=== PATIENT | male | born 1960 | race Caucasian/White ===

== ENCOUNTER 2021-03-02 09:49 | Outpatient (CLI) | payer OTHER, SELFPAY ==
--- NOTE | ~2021-03-02 | CT_ITS ---
EXAMINATION: CT lung screening DATE: 03/02/2021 11:30 INDICATION: History of tobacco dependence. Emphysema. TECHNIQUE: Computed tomography (CT) of the chest was performed without intravenous contrast. The dose -length product was 73.25 mGy-cm. Automated exposure control and iterative reconstruction technique w ere employed. COMPARISON: None FINDINGS: No thoracic lymph node enlargement. There is atherosclerosis of the aorta and coronary weston andrew. No significant pleural or pericardial effusion. Severe emphysema. No endobronchial lesions. The re is lingular atelectasis/scarring. No suspicious pulmonary nodules or masses. There is mild thoraci c spondylosis. No acute osseous abnormality. IMPRESSION: 1. Lung-RADS category 1: Negative. Continue annual screening with noncontrast low-dose chest CT in 12 months. Reviewed, dictated and finalized at location B. IMPRESSION: 1. Lung-RADS category 1: Negative. Continue annual screening with noncontrast l ow-dose chest CT in 12 months.
== END 2021-03-02 09:50 | disposition home or self-care (01) ==
PROVIDERS: PCP Family Medicine
DX: Z12.2 Encounter for screening for malignant neoplasm of respiratory organs (principal); Z87.891 Personal history of nicotine dependence
CPT/HCPCS: 71271

== ENCOUNTER 2021-03-02 09:56 | Outpatient (CLI) | payer OTHER, SELFPAY ==
--- NOTE | 2021-03-03 15:25 | WPDPFTINT ---
PFT Procedure Performed PFT Procedure Performed Spirometry with Pre/Post Bronchodilator Plethysmography (Lung Vol) Diffusing Cap (DLCO) Flow Vol Loop PFT Interpretation DOS: 03/02/2021 REQUESTING: JASON Romero REASON FOR TESTING: COPD PULMONARY FUNCTION TESTS Test results are reliable and reproducible. Spirometry: FEV1 is 35% predicted, 1.24 L severely decreased. FVC is 76% predicted. The FEV1/FVC ratio is decreased 46%. There is a 31% increase in the FVC which is also greater than 200 mL, significant. Lung volumes: Total lung capacity is 119%, upper limit of normal. Slow vital capacity is 81%, slightly higher than the forced vital capacity. Residual volume is 184% consistent with severe air trapping. Airway resistance is increased, 642%. Diffusion: DLCO is 46%, moderately decreased. No change when corrected for alveolar volume. Flow volume loop: Flow volume loop shows severe scooping of the expiratory limb consistent with an obstructive process. IMPRESSION: This study shows extremely severe obstructive ventilatory impairment, severe air trapping, and moderate diffusion impairment. There is an excellent response to bronchodilator. This pattern is consistent with chronic obstructive pulmonary disease. There is no prior study for comparison. Marguerite Bishop MD
== END 2021-03-02 09:57 | disposition home or self-care (01) ==
LOC: CHSCARD 09:57
PROVIDERS: PCP Family Medicine
DX: J44.9 Chronic obstructive pulmonary disease, unspecified (principal)
CPT/HCPCS: 94060; 94726; 94729

== ENCOUNTER 2021-04-02 14:57 | Outpatient (CLI) | payer OTHER, SELFPAY ==
--- NOTE | ~2021-04-02 | XR_ITS ---
EXAMINATION: XR foot RT min 3V DATE: 04/02/2021 15:41 INDICATION: Right foot pain TECHNIQUE: Dorsoplantar, lateral, and 2 oblique views of the right foot were obtained. COMPARISON: None. FINDINGS: There is no fracture, dislocation, or subluxation. The bones, soft tissues, and joint space s are normal. There is persistent flexion of the second toe. IMPRESSION: 1. No acute osseous abnormality. Reviewed, dictated and finalized at location B.
--- NOTE | ~2021-04-02 | XR_ITS ---
XR shoulder RT min 2V 04/02/2021 15:38 INDICATION: Right shoulder pain PROCEDURE: 5 views right shoulder COMPARISON: No prior studies for comparison. FINDINGS: Fracture, dislocation or subluxation is not identified. The soft tissues appear within norm al limits. No foreign bodies are identified. IMPRESSION: 1: NO ACUTE BONE OR JOINT ABNORMALITY IDENTIFIED. Reviewed, dictated and finalized at location A.
== END 2021-04-02 14:58 | disposition home or self-care (01) ==
LOC: CHSIMG 15:00
PROVIDERS: PCP Family Medicine; Visit Provider Family Medicine
DX: M25.511 Pain in right shoulder (principal); M79.671 Pain in right foot
CPT/HCPCS: 73030; 73630

== ENCOUNTER 2022-02-16 10:31 | Outpatient (CLI) | payer OTHER, SELFPAY ==
--- NOTE | ~2022-02-16 | CT_ITS ---
EXAMINATION: CT lung screening DATE: 02/16/2022 10:51 INDICATION: Personal history of nicotine dependence, current smoker TECHNIQUE: Computed tomography (CT) of the chest was performed without intravenous contrast. The dose -length product (DLP) was 73.32 mGy-cm. Automated exposure control and iterative reconstruction techn ique were employed. COMPARISON: 03/02/2021 FINDINGS: There is severe emphysema. There is a stable 6 mm subpleural nodule of the left lower lobe. There is unchanged mild atelectasis of the lingula. The lungs are free of acute opacities. There is no pleural effusion or pneumothorax. No pathologically enlarged thoracic lymph nodes are identified. The heart size is normal. There is moderate thoracic spondylosis. IMPRESSION: 1. Lung-RADS category 2: Benign appearance or behavior. Continue annual screening with noncontrast lo w-dose chest CT in 12 months. Reviewed, dictated and finalized at location A. IMPRESSION: 1. Lung-RADS category 2: Benign appearance or behavior. Continue annual screeni ng with noncontrast low-dose chest CT in 12 months.
== END 2022-02-16 10:32 | disposition home or self-care (01) ==
PROVIDERS: PCP Family Medicine; Visit Provider Family Medicine
DX: Z87.891 Personal history of nicotine dependence (principal)
CPT/HCPCS: 71271

== ENCOUNTER 2023-02-15 09:44 | Outpatient (CLI) | payer OTHER, SELFPAY ==
--- NOTE | ~2023-02-15 | CT_ITS ---
EXAMINATION: CT lung screening DATE: 02/15/2023 10:02 INDICATION: History of tobacco dependence. Cough. Screening for lung cancer. TECHNIQUE: Computed tomography (CT) of the chest was performed without intravenous contrast. The dose -length product was 88.70 mGy-cm. Automated exposure control and iterative reconstruction technique w ere employed. COMPARISON: CT dated 02/16/2022 FINDINGS: No thoracic lymphadenopathy. No significant pleural or pericardial effusion. Heart size nor mal. Mild atherosclerosis. Gallstones. Severe emphysema. No endobronchial lesions. Stable 6 mm subple ural nodule in the left lower lobe, image 91. No pneumothorax. There is chronic lingular atelectasis/ scarring. Mild thoracic spondylosis. IMPRESSION: 1. Lung-RADS category 2: Benign appearance or behavior. Continue annual screening with noncontrast lo w-dose chest CT in 12 months. Reviewed, dictated and finalized at location B. IMPRESSION: 1. Lung-RADS category 2: Benign appearance or behavior. Continue annual screeni ng with noncontrast low-dose chest CT in 12 months.
== END 2023-02-15 09:45 | disposition home or self-care (01) ==
LOC: CHSIMG 09:46
PROVIDERS: PCP Family Medicine; Visit Provider Family Medicine
DX: Z12.2 Encounter for screening for malignant neoplasm of respiratory organs (principal); Z87.891 Personal history of nicotine dependence
CPT/HCPCS: 71271

== ENCOUNTER 2024-04-17 10:26 | Outpatient (CLI) | payer OTHER, SELFPAY ==
--- NOTE | ~2024-04-17 | XR_ITS ---
Left elbow Technique: AP, oblique, and lateral views were obtained. Clinical History: Pain Findings: No acute fracture or dislocation is seen. Osseous alignment is anatomic. Joint spaces are p reserved. There is no displacement of the fat pads, and soft tissues are unremarkable. Impression: Unremarkable radiographs. Reviewed, dictated and finalized at location . Impression: Unremarkable radiographs.
--- NOTE | ~2024-04-17 | CT_ITS ---
CT Scan of the Chest without Contrast: Clinical Indication: Lung cancer screening, nicotine dependence Technique: Contiguous sections were acquired throughout the chest without intravenous contrast. Dose reduction technique was used on this scan by utilizing automated exposure control and iterative recon struction technique. The dose-length product (DLP) was 71.34 mGy-cm. COMPARISON: 02/15/2023 Findings: There is no evidence of any significant mediastinal, hilar or axillary lymphadenopathy. The mediastin al soft tissues appear normal. There is no evidence of pleural or pericardial effusion. Severe emphysema present. There is chronic scarring or atelectasis in the lingula. Stable rounded ple ural-based nodule at the left lower lobe posteriorly (axial image 102). Images through the upper abdomen reveal no abnormalities. Impression: Lung RADS 2: Benign appearance. 12 month follow-up screening CT advised. Stable severe emphysema. Reviewed, dictated and finalized at [facility]. Impression: Lung RADS 2: Benign appearance. 12 month follow-up screening CT advised. Stable severe emphysema.
== END 2024-04-17 10:27 | disposition home or self-care (01) ==
PROVIDERS: PCP Family Medicine; Visit Provider Family Medicine
DX: Z12.2 Encounter for screening for malignant neoplasm of respiratory organs (principal); Z87.891 Personal history of nicotine dependence; M25.522 Pain in left elbow; J43.9 Emphysema, unspecified
CPT/HCPCS: 71271; 73080

== ENCOUNTER 2024-05-06 07:09 | Outpatient (CLI) | payer OTHER, SELFPAY ==
--- NOTE | ~2024-05-06 | US_ITS ---
EXAMINATION: US renal BI DATE: 05/06/2024 07:45 INDICATION: Chronic kidney disease TECHNIQUE: Multiple ultrasound grayscale images of the kidneys were obtained. COMPARISON: None. FINDINGS: The right kidney measures 9.3 x 4.1 x 4.0 cm. The left kidney measures 11.3 x 5.1 x 4.4 cm. The kidne ys demonstrate normal echogenicity. There is no hydronephrosis in either kidney. No stones identifie d. The bladder is normal attending for partially decompressed state. Calculated prevoid bladder volum e of 35 mL and postvoid bladder volume of 5 mm . Prostatomegaly measuring 5.1 x 4.1 x 3.7 cm IMPRESSION: 1. Normal kidneys without hydronephrosis. Reviewed, dictated and finalized at location B.
== END 2024-05-06 07:10 | disposition home or self-care (01) ==
LOC: CHSIMG 07:11
PROVIDERS: PCP Family Medicine; Visit Provider Family Medicine
DX: N18.9 Chronic kidney disease, unspecified (principal)
CPT/HCPCS: 76775

== ENCOUNTER 2025-07-02 07:35 | Outpatient (CLI) | payer MEDICARE, MEDICAID, SELFPAY ==
--- NOTE | ~2025-07-02 | CT_ITS ---
EXAMINATION: CT lung screening DATE: 07/02/2025 07:52 INDICATION: Personal history of nicotine dependence TECHNIQUE: Computed tomography (CT) of the chest was performed without intravenous contrast. The dose-length product was 88.65 mGy-cm. COMPARISON: Chest CT 04/17/2024 and 02/16/2022 FINDINGS: No enlarged mediastinal or hilar lymph nodes. Heart is unenlarged. There are coronary artery calcifications. Cholelithiasis. Thoracic aorta is not aneurysmal but is mildly calcified. Severe stable centrilobular and paraseptal emphysema. No pleural effusion. No pulmonary mass. Stable 3 mm pulmonary nodule along the minor fissure in the right lung. There are a few small reticular and subpleural opacities in the lower lungs likely scarring and atelectasis similar to prior studies.. Bones appear osteopenic. Multilevel degenerative change in the visualized spine similar to the prior study. There is a 10 x 18 x 20 mm masslike density along the posterior aspect of the proximal trachea with a locule of air. The finding may represent mucous, however, a mass is possible. IMPRESSION: 1. Lung-RADS category 2: Benign appearance or behavior. Continue annual screening with noncontrast low-dose chest CT in 12 months. 2.There is a 10 x 18 x 20 mm masslike density along the posterior aspect of the proximal trachea with a locule of air. The finding may represent mucous, however, a mass is possible. Consider a CT of the soft tissues the neck with contrast for further assessment. Reviewed, dictated and finalized at location Q. IMPRESSION: 1. Lung-RADS category 2: Benign appearance or behavior. Continue annual screeni ng with noncontrast low-dose chest CT in 12 months. 2.There is a 10 x 18 x 20 mm masslike density along the posterior aspect of the proximal trachea with a locule of air. The finding may represent mucous, howev er, a mass is possible. Consider a CT of the soft tissues the neck with contras t for further assessment.
== END 2025-07-02 07:36 | disposition home or self-care (01) ==
LOC: CHSIMG 07:39
PROVIDERS: PCP Family Medicine; Visit Provider Family Medicine
DX: Z12.2 Encounter for screening for malignant neoplasm of respiratory organs (principal); Z87.891 Personal history of nicotine dependence; R91.8 Other nonspecific abnormal finding of lung field
CPT/HCPCS: 71271

== ENCOUNTER 2025-07-14 12:30 | Outpatient (CLI) | payer MEDICARE, MEDICAID, SELFPAY | END 2025-07-14 12:31 | disposition home or self-care (01) | LOC: CHSIMG 12:32 | PROVIDERS: PCP Family Medicine; Visit Provider Family Medicine | DX: J39.8 Other specified diseases of upper respiratory tract (principal) | CPT/HCPCS: 99199 ==